=== PATIENT | female | born 1985 | race Two or more races ===

== ENCOUNTER 2020-06-04 08:46 | Emergency (ER) | payer OTHER ==
[~2020-06-04] VITALS: Ht 162.6 cm; Wt 72.1 kg
[2020-06-04] MEDS ORDERED: MEDROXYPROGESTE10 MG PO (13:03)
== END 2020-06-04 14:15 | disposition home or self-care (01) ==
LOC: ER 08:46
DX: N93.8 Other specified abnormal uterine and vaginal bleeding (principal); Z20.828 Contact with and (suspected) exposure to other viral communicable diseases